=== PATIENT | female | born 1990 | race Caucasian/White ===

== ENCOUNTER 2018-06-25 01:39 | Inpatient (IN) | payer OTHER ==
[2018-06-25] MEDS ORDERED: ALBUTEROL/IPRATROPIUM (NEB) 3 ML AMP HHN (02:30)
[2018-06-25] MEDS ORDERED: HYDROCODONE/APAP (5/325) TAB PO (02:30)
[2018-06-25] MEDS ORDERED: ONDANSETRON 4 MG INJ IV (02:30)
[2018-06-25] MEDS ORDERED: NACL 0.9% 3 ML SYG IV (02:30)
[2018-06-25] MEDS: ACYCLOVIR 500 MG in DEXTROSE 5% 100 ML IVPB ×2 (05:03→13:15)
[2018-06-25] MEDS: VANCOMYCIN 1.5 GM in SOD CHLORIDE 0.9% 250 ML IVPB (06:11)
[2018-06-25] MEDS ORDERED: CEFTRIAXONE 1 GM/50 ML (PMX) 50 ML IVPB (09:00)
[2018-06-25] MEDS ORDERED: VANCOMYCIN IV PER PHARMACY XX (09:00)
[2018-06-25 09:19] LABS: ADD MAN DIFF? NO
[2018-06-25 09:24] LABS: WHITE BLOOD COUNT 7.2 10^3/ul (4.8-10.8)
[2018-06-25 09:24] LABS: BASOPHILS % 0.4 % (0.0-2.0); EOSINOPHILS # 0.1 10^3/ul (0.0-0.5); EOSINOPHILS % 1.4 % (0.0-7.0); HEMATOCRIT 39.3 % (37.0-47.0); HEMOGLOBIN 12.7 g/dl (12.0-16.0); LYMPHOCYTES # 2.7 10^3/ul (0.8-2.9); MEAN CORPUSCULAR HEMOGLOBIN 30.2 pg (29.0-33.0); MEAN CORPUSCULAR HGB CONC 32.3 g/dl (32.0-37.0); MEAN CORPUSCULAR VOLUME 93.6 fl (82.0-101.0); MEAN PLATELET VOLUME 11.1 fl (7.4-10.4); MONOCYTE # 0.4 10^3/ul (0.3-0.9); MONOCYTES % 5.8 % (0.0-11.0); NEUTROPHILS % 55.1 % (39.0-77.0); PLATELET COUNT 255 10^3/UL (140-415); RED CELL DISTRIBUTION WIDTH 13.2 % (11.5-14.5)
[2018-06-25 09:35] LABS: HEMOGLOBIN A1C 5.8 % (0-5.9)
[2018-06-25] MEDS: CEFTRIAXONE 2 GM/NS 50 ML IVPB ×2 (09:41→20:40)
[2018-06-25 09:46] LABS: ALANINE AMINOTRANSFERASE 24 IU/L (13-69); ALBUMIN/GLOBULIN RATIO 1.05; ALKALINE PHOSPHATASE 83 IU/L (42-121); ANION GAP 8 (5-13); ASPARTATE AMINO TRANSFERASE 20 IU/L (15-46); BILIRUBIN,INDIRECT 0.3 mg/dl (0-1.1); BILIRUBIN,TOTAL 0.3 mg/dl (0.2-1.3); BLOOD UREA NITROGEN 9 mg/dl (7-20); CALCIUM 8.9 mg/dl (8.4-10.2); CARBON DIOXIDE 27 mmol/L (21-31); CHLORIDE 105 mmol/L (97-110); CREATININE 0.55 mg/dl (0.44-1.00); Estimated GFR > 60 mL/min (>60); GLUCOSE 120 mg/dl (70-220); POTASSIUM 3.9 mmol/L (3.5-5.1); SODIUM 140 mmol/L (135-144); TOTAL PROTEIN 7.8 g/dl (6.1-8.1)
[2018-06-25] MEDS: ACETAMINOPHEN 325 MG TAB PO ×2 (09:47→17:05)
[2018-06-25] MEDS ORDERED: DOCUSATE SODIUM 100 MG CAP PO (12:00)
[2018-06-25] MEDS: VANCOMYCIN 1.25 GM in SOD CHLORIDE 0.9% 250 ML IVPB ×2 (15:34→23:04)
[2018-06-25] MEDS: ACYCLOVIR IVPB (21:33)
[2018-06-25] MEDS: DEXTROSE 5% IVPB (21:33)
[2018-06-26] MEDS: HYDROCODONE/APAP (5/325) TAB PO ×3 (00:40→20:27)
[2018-06-26 05:03] LABS: ADD MAN DIFF? NO
[2018-06-26 05:08] LABS: BASOPHILS % 0.4 % (0.0-2.0); EOSINOPHILS # 0.1 10^3/ul (0.0-0.5); HEMATOCRIT 36.1 % (37.0-47.0); HEMOGLOBIN 12.1 g/dl (12.0-16.0); LYMPHOCYTES # 2.4 10^3/ul (0.8-2.9); LYMPHOCYTES % 34.6 % (15.0-51.0); MEAN CORPUSCULAR HEMOGLOBIN 30.4 pg (29.0-33.0); MEAN CORPUSCULAR HGB CONC 33.5 g/dl (32.0-37.0); MEAN CORPUSCULAR VOLUME 90.7 fl (82.0-101.0); MEAN PLATELET VOLUME 10.9 fl (7.4-10.4); MONOCYTE # 0.4 10^3/ul (0.3-0.9); MONOCYTES % 5.9 % (0.0-11.0); NEUTROPHILS % 56.8 % (39.0-77.0); PLATELET COUNT 240 10^3/UL (140-415); RED BLOOD COUNT 3.98 10^6/ul (4.20-5.40); RED CELL DISTRIBUTION WIDTH 13.1 % (11.5-14.5)
[2018-06-26 05:25] LABS: INR 1.09; PROTIME 14.2 Sec (11.9-14.9); PT RATIO 1.1
[2018-06-26 05:37] LABS: ANION GAP 8 (5-13); BLOOD UREA NITROGEN 11 mg/dl (7-20); CALCIUM 8.6 mg/dl (8.4-10.2); CARBON DIOXIDE 27 mmol/L (21-31); CHLORIDE 106 mmol/L (97-110); CREATININE 0.62 mg/dl (0.44-1.00); Estimated GFR > 60 mL/min (>60); GLUCOSE 111 mg/dl (70-220); MAGNESIUM 2.1 mg/dl (1.7-2.5); PHOSPHORUS 3.4 mg/dl (2.5-4.9); POTASSIUM 4.2 mmol/L (3.5-5.1); SODIUM 141 mmol/L (135-144)
[2018-06-26] MEDS: DEXTROSE 5% IVPB ×3 (05:39→22:10)
[2018-06-26] MEDS: ACYCLOVIR IVPB ×3 (05:39→22:10)
[2018-06-26] MEDS: VANCOMYCIN 1.25 GM in SOD CHLORIDE 0.9% 250 ML IVPB ×3 (07:24→23:54)
[2018-06-26] MEDS: CEFTRIAXONE 2 GM/NS 50 ML IVPB ×2 (10:27→20:27)
[2018-06-26 14:04] LABS: VANCOMYCIN,TROUGH 14.1 ug/ml (10.0-20.0)
[2018-06-26] MEDS: ACETAMINOPHEN 325 MG TAB PO (15:16)
[2018-06-26] MEDS: ONDANSETRON 4 MG INJ IV (19:10)
[2018-06-27] MEDS: DEXTROSE 5% IVPB ×3 (05:17→22:25)
[2018-06-27] MEDS: VANCOMYCIN 1.25 GM in SOD CHLORIDE 0.9% 250 ML IVPB ×2 (05:17→14:40)
[2018-06-27] MEDS: ACYCLOVIR IVPB ×3 (05:17→22:25)
[2018-06-27] MEDS: HYDROCODONE/APAP (5/325) TAB PO ×2 (08:59→18:35)
[2018-06-27] MEDS: CEFTRIAXONE 2 GM/NS 50 ML IVPB ×2 (10:17→20:34)
[2018-06-28] MEDS: VANCOMYCIN 1.25 GM in SOD CHLORIDE 0.9% 250 ML IVPB ×2 (00:41→05:25)
[2018-06-28] MEDS: HYDROCODONE/APAP (5/325) TAB PO (00:41)
[2018-06-28] MEDS: DEXTROSE 5% IVPB (05:26)
[2018-06-28] MEDS: ACYCLOVIR IVPB (05:26)
[2018-06-28] MEDS: ENOXAPARIN 40 MG/0.4 ML SYG SC (08:46)
[2018-06-28] MEDS: CEFTRIAXONE 2 GM/NS 50 ML IVPB (11:48)
[2018-06-28] MEDS: ACYCLOVIR 800 MG TAB PO (13:32)
== END 2018-06-28 15:22 | disposition home or self-care (01) | DRG 75 ==
LOC: PP2 01:39
PROVIDERS: Internal Medicine
DX: A87.9 Viral meningitis, unspecified (principal); Z68.42 Body mass index [BMI] 45.0-49.9, adult; I10 Essential (primary) hypertension; E66.01 Morbid (severe) obesity due to excess calories; G43.909 Migraine, unspecified, not intractable, without status migrainosus; E88.81 Metabolic syndrome and other insulin resistance; Z86.32 Personal history of gestational diabetes
CPT/HCPCS: 80048; 80053; 80202; 83036; 83735; 84100; 84443; 84703; 85025; 85610; 87040; 87086